=== PATIENT | male | born 1990 | race African-American/Black ===

== ENCOUNTER 2024-03-22 08:56 | Inpatient (IN) | payer SELFPAY ==
[2024-03-22] VITALS (7 sets, daily range): BP systolic 119–140; BP diastolic 78–102; PULSE 64–99; RESP 16–29; TEMP 36.418–36.83628; O2SAT 98–99
[~2024-03-22] VITALS: Ht 165.1 cm; Wt 86.6 kg
[2024-03-22 09:51] LABS: BASOPHILS % 0.7 % (0.0-2.0); EOSINOPHILS % 1.2 % (0.0-5.0); HEMATOCRIT. 39.3 % (42.0-52.0); HEMOGLOBIN. 13.5 g/dL (14.0-18.0); LYMPHOCYTES % 23.5 % (20.0-50.0); MEAN CORPUSCULAR HEMOGLOBIN 30.7 pg (28.0-32.0); MEAN CORPUSCULAR HGB CONC 34.5 g/dL (31.0-37.0); MEAN PLATELET VOLUME 7.7 fl (7.4-10.4); MONOCYTES % 7.4 % (2.0-8.0); NEUTROPHILS % 67.2 % (40.0-76.0); PLATELET 240 x1000/uL (130-400); RED BLOOD CELL COUNT 4.41 mill/uL (4.7-6.1); RED CELL DISTRIBUTION WIDTH 13.8 % (11.6-14.6)
[2024-03-22 09:53] LABS: CARBON DIOXIDE 27 mEq/L (21-32); CHLORIDE 108 mEq/L (98-107); POTASSIUM 3.6 mEq/L (3.5-5.1); SODIUM 140 mEq/L (136-145)
[2024-03-22 09:54] LABS: CALCIUM 9.1 mg/dL (8.7-10.4)
[2024-03-22 09:58] LABS: CREATININE 0.7 mg/dL (0.6-1.3)
[2024-03-22 09:59] LABS: GLUCOSE 100 mg/dL (70-105); UREA NITROGEN BLOOD 12 mg/dL (9-23)
[2024-03-22 10:00] LABS: ACETAMINOPHEN < 2 ug/mL (10-30); ALANINE AMINOTRANSFERASE 23 IU/L (10-49); ASPARTATE AMINOTRANSFERASE 46 IU/L (<34)
[2024-03-22 10:01] LABS: BILIRUBIN DIRECT 0.4 mg/dL (<=3.0); PROTEIN TOTAL 6.6 g/dL (6.0-8.3)
[2024-03-22] MEDS ORDERED: IPRATROPIUM/ALBUTEROL 0.5-3(2.5)MG/3ML NEB NEB PRN (13:30)
[2024-03-22] MEDS ORDERED: ONDANSETRON HCL 4MG/2ML INJ IV PRN (13:30)
[2024-03-22] MEDS ORDERED: CLONIDINE 0.1MG TABLET PO PRN (13:30)
[2024-03-22 14:35] LABS: ETHANOL BLOOD < 10 mg/dL (<10)
[2024-03-22] MEDS: ENOXAPARIN 40MG/0.4ML SYR SUBCUT SCH (14:36)
[2024-03-22] MEDS: SODIUM CHLORIDE 0.9% 1,000 ML IV SCH (14:40)
[2024-03-22] MEDS: ACETAMINOPHEN 325MG TABLET PO PRN (20:05)
[2024-03-22 20:53] LABS: CREATINE KINASE MB FRACTION 4.5 ng/mL (0.5-3.6)
[2024-03-22 20:54] LABS: TROPONIN I HIGH SENSITIVITY 6 ng/L (3.0-53)
[2024-03-22 20:55] LABS: CREATINE KINASE 388 IU/L (46-171)
[2024-03-22] MEDS: TRAMADOL 50MG TABLET PO PRN (22:13)
[2024-03-23] VITALS (8 sets, daily range): BP systolic 123–138; BP diastolic 76–95; PULSE 65–86; RESP 14–34; TEMP 36.44736–36.83628; O2SAT 94–98
[2024-03-23 02:58] LABS: CLARITY URINE CLEAR (CLEAR); COLOR URINE YELLOW (YELLOW); GLUCOSE URINE NEGATIVE (NEGATIVE); KETONES URINE TRACE (NEGATIVE); LEUKOCYTE ESTERASE URINE NEGATIVE (NEGATIVE); NITRITE URINE NEGATIVE (NEGATIVE); OCCULT BLOOD URINE NEGATIVE (NEGATIVE); PROTEIN URINE NEGATIVE (NEGATIVE); SPECIFIC GRAVITY URINE 1.027 (1.005-1.030)
[2024-03-23 03:08] LABS: *AMPHETAMINES SCREEN URINE PRESUMPTIVE POSITIVE (NEGATIVE); *BARBITURATES SCREEN URINE NEGATIVE (NEGATIVE); *BENZODIAZEPINES SCREEN URINE NEGATIVE (NEGATIVE); *COCAINE SCREEN URINE NEGATIVE (NEGATIVE); CANNABINOID URINE SCREEN PRESUMPTIVE POSITIVE (NEGATIVE); ECSTASY MDMA SCREEN URINE NEGATIVE (NEGATIVE); METHADONE URINE SCREEN NEGATIVE (NEGATIVE); OPIATES URINE SCREEN NEGATIVE (NEGATIVE); PHENCYCLIDINE URINE SCREEN PRESUMTIVE POSITIVE (NEGATIVE)
[2024-03-23 04:04] LABS: WBC URINE 0-2 /hpf (0-2)
[2024-03-23 04:05] LABS: RBC URINE 0-2 /hpf (0-2)
[2024-03-23 04:11] LABS: BACTERIA URINE NONE SEEN; SQUAMOUS EPITHELIAL CELL URINE NONE SEEN /lpf (RARE/1+)
[2024-03-23 08:58] LABS: BASOPHILS % 0.8 % (0.0-2.0); CHLORIDE 109 mEq/L (98-107); HEMOGLOBIN. 13.4 g/dL (14.0-18.0); LYMPHOCYTES % 39.1 % (20.0-50.0); MEAN CORPUSCULAR HEMOGLOBIN 31.2 pg (28.0-32.0); MEAN CORPUSCULAR HGB CONC 35.2 g/dL (31.0-37.0); MEAN CORPUSCULAR VOLUME 88.5 fL (80.0-94.0); MEAN PLATELET VOLUME 8.2 fl (7.4-10.4); MONOCYTES % 11.7 % (2.0-8.0); NEUTROPHILS % 46.4 % (40.0-76.0); PLATELET 238 x1000/uL (130-400); POTASSIUM 3.9 mEq/L (3.5-5.1); RED BLOOD CELL COUNT 4.29 mill/uL (4.7-6.1); RED CELL DISTRIBUTION WIDTH 13.6 % (11.6-14.6); SODIUM 141 mEq/L (136-145)
[2024-03-23 08:59] LABS: CALCIUM 9.1 mg/dL (8.7-10.4); CARBON DIOXIDE 27 mEq/L (21-32)
[2024-03-23 09:00] LABS: TROPONIN I HIGH SENSITIVITY 4 ng/L (3.0-53)
[2024-03-23 09:04] LABS: CREATININE 0.9 mg/dL (0.6-1.3); GLUCOSE 96 mg/dL (70-105); UREA NITROGEN BLOOD 14 mg/dL (9-23)
[2024-03-23 09:05] LABS: CREATINE KINASE 227 IU/L (46-171)
[2024-03-23] MEDS: KETOROLAC 30MG/ML VIAL IV PRN (10:46)
[2024-03-23] MEDS: THIAMINE HCL 100MG TABLET PO SCH (23:00)
[2024-03-24] VITALS: BP 124/69; PULSE 60; RESP 17; TEMP 36.78072; O2SAT 95
[2024-03-24 04:00] VITALS: BP 119/87; PULSE 59; RESP 19; TEMP 37.00296; O2SAT 99
[2024-03-24 08:00] VITALS: BP 133/91; PULSE 80; RESP 15; TEMP 37.00296; O2SAT 98
[2024-03-24 12:00] VITALS: BP 106/93; PULSE 55; RESP 17; TEMP 36.55848; O2SAT 99
[2024-03-24 16:00] VITALS: BP 131/86; PULSE 76; RESP 22; TEMP 37.00296; O2SAT 99
[2024-03-24 20:00] VITALS: BP 138/84; PULSE 63; RESP 16; TEMP 37.00296; O2SAT 98
[2024-03-25] VITALS: BP 101/63; PULSE 60; RESP 18; TEMP 37.05852; O2SAT 96
[2024-03-25 04:00] VITALS: BP 94/72; PULSE 62; RESP 10; TEMP 36.50292; O2SAT 96
[2024-03-25 06:00] VITALS: BP 125/88; PULSE 56; RESP 16; O2SAT 97
[2024-03-25 08:00] VITALS: BP 94/69; PULSE 58; RESP 17; O2SAT 94
[2024-03-25 12:00] VITALS: BP 124/85; PULSE 67; RESP 19; O2SAT 98
[2024-03-25] MEDS ORDERED: THIA100T72 PO (12:08)
[2024-03-25 13:02] VITALS: BP 124/82; PULSE 67; O2SAT 100
== END 2024-03-25 14:10 | disposition home or self-care (01) | DRG 52 ==
LOC: ER 09:02 → 5EST 10:55 → EDBEDREQ 10:59 → EDBEDREQTM 10:59
PROVIDERS: ADMIT Internal Medicine; ATTEND Internal Medicine
DX: G92.8 Other toxic encephalopathy (principal); M62.82 Rhabdomyolysis; F19.10 Other psychoactive substance abuse, uncomplicated
CPT/HCPCS: 36415; 80048; 80076; 80305; 80307; 80320; 80329; 81003; 82550; 82553; 84484; 85025; 93005; 99291; J1650; J1885; J7030; G0480